=== PATIENT | male | born 1960 | race Caucasian/White ===

== ENCOUNTER 2021-06-27 19:30 | Emergency (ER) | payer MEDICARE, OTHER ==
[2021-06-27] MEDS ORDERED: Sodium Chloride 0.9% 10 ML Syringe FLUSH PRN (19:34)
--- NOTE | 2021-06-27 19:43 | EDM.PDOC ---
ED HPI GENERAL MEDICAL PROBLEM - General Chief Complaint: Chest Pain Stated Complaint: CHEST PAIN Time Seen by Provider: 06/27/21 19:34 Source of Information: Reports: Patient History Limitations: Reports: No Limitations - History of Present Illness INITIAL COMMENTS - FREE TEXT/NARRATIVE: Francisco is a 60-year-old male presenting to the ED with acute onset of chest pressure started about 90 minutes prior to arrival. Patient recently underwent an angiogram with stent placement at [facility] approximately 3 days ago. Patient has a history for significant coronary artery disease status post coronary bypass graft 4 years ago. Septums include chest pressure, shortness of breath, mild nausea and some diaphoresis. Patient was sitting watching a movie when he had acute onset of the chest pressure, nausea, and he tried to lay down to see if it will go away. Patient is extremely sensitive the nitrates and avoids them. He is on metoprolol XL 50 mg daily, aspirin 81 mg daily, Plavix 75 mg twice daily, Ranexa and lovastatin. There is a very strong family history on his mother side of coronary artery disease with multiple family members dying in their 50s from complications related to coronary disease. The patient previously had a history for hypertension but this is under control on medication. He also had a previous significant history for hyperlipidemia but this too is under control with medication. He is not diabetic. He has previously smoked but has been a non-smoker for many years. He is overweight. He states that this pressure feels a little different than when he was seen earlier this week prior to undergoing the stent placement. He states it felt like he was in A. fib because he had a fluttering that was irregular. This made him quite nauseous. Middle Chest Pain Score (Numeric/FACES): 8 - Related Data Allergies Allergy/AdvReac Type Severity Reaction Status Date / Time isosorbide Allergy Headache Verified 06/27/21 19:35 Nitrate Analogues Allergy Headache Verified 06/27/21 19:35 nitroglycerin Allergy Headache Verified 06/27/21 19:35 Home Meds: Home Meds Aspirin [Halfprin] 81 mg PO DAILY 06/27/21 [History] Clopidogrel [Plavix] 75 mg PO DAILY 06/27/21 [History] Fluticasone Propionate [Flonase] 16 gm NS ASDIRECTED 06/27/21 [History] Furosemide [Lasix] 40 mg PO DAILY 06/27/21 [History] Metoprolol Succinate [Toprol Xl] 1 tab PO DAILY 06/27/21 [History] Pantoprazole [ProTONIX] 40 mg PO DAILY 06/27/21 [History] Potassium Chloride [Klor-Con M20] 20 meq PO DAILY 06/27/21 [History] Ranolazine [Ranexa] 500 mg PO DAILY 06/27/21 [History] Rosuvastatin [Crestor] 10 mg PO DAILY 06/27/21 [History] traZODone 100 mg PO BEDTIME 06/27/21 [History] ED ROS GENERAL - Review of Systems Review Of Systems: See Below Constitutional: Reports: Diaphoresis HEENT: Reports: No Symptoms Respiratory: Reports: Shortness of Breath Cardiovascular: Reports: Chest Pain, Lightheadedness, Palpitations Endocrine: Reports: No Symptoms GI/Abdominal: Reports: Nausea : Reports: No Symptoms Musculoskeletal: Reports: No Symptoms Skin: Reports: No Symptoms Neurological: Reports: No Symptoms Psychiatric: Reports: No Symptoms Hematologic/Lymphatic: Reports: No Symptoms Immunologic: Reports: No Symptoms ED EXAM, GENERAL - Physical Exam Exam: See Below Exam Limited By: No Limitations General Appearance: Alert, Anxious, Mild Distress Eye Exam: Bilateral Eye: EOMI, PERRL Throat/Mouth: Normal Inspection, Normal Lips, Normal Oropharynx, Normal Voice, No Airway Compromise Head: Atraumatic, Normocephalic Neck: Normal Inspection, Supple, Non-Tender, Full Range of Motion. No: Carotid Bruit Respiratory/Chest: No Respiratory Distress, Lungs Clear, Normal Breath Sounds. No: Rales, Rhonchi, Wheezing Cardiovascular: Normal Peripheral Pulses, Regular Rate, Rhythm, No Murmur, Tachycardia, Extra Beats (Frequent PVCs) Peripheral Pulses: 2+: Radial (L), Radial (R), Posterior Tibial (L), Posterior Tibial (R) GI/Abdominal: Normal Bowel Sounds, Soft, Non-Tender Extremities: Normal Inspection, Normal Range of Motion, No Pedal Edema, Normal Capillary Refill Neurological: Alert, Oriented, Normal Cognition, No Motor/Sensory Deficits Psychiatric: Normal Affect, Normal Mood, Anxious Skin Exam: Warm, Dry, Intact, Normal Color. No: Diaphoretic, Pallor #1 Interpretation EKG Date: 06/27/21 Time: 19:29 Rhythm: NSR (Sinus tachycardia with frequent PVCs) Rate (Beats/Min): 105 Confluence: LAD-Left Confluence Deviation P-Wave: Present (Borderline prolonged ME interval with the ME interval being 200 ms) QRS: Normal (Poor R wave progression in the precordial leads. Q waves in leads II, 3, aVF consistent with previous inferior MN) ST-T: Normal (Nonspecific ST-T changes) QT: Normal Comparison: NA - No Prior EKG Course - Vital Signs Last Recorded V/S: Last Vital Signs Temp 36.8 C 06/27/21 19:39 Pulse 92 06/27/21 21:53 Resp 19 06/27/21 20:34 BP 123/52 L 06/27/21 21:53 Pulse Ox 97 06/27/21 20:34 - Orders/Labs/Meds Orders: Active Orders 24 hr Category Date Time Status Chest 1V Frontal [CR] Stat Exams 06/27/21 19:34 Taken Aspirin Med 06/27/21 23:56 Once 243 mg PO ONETIME ONE HYDROmorphone [Dilaudid] Med 06/27/21 23:56 Once 0.5 mg IVPUSH ONETIME ONE Heparin Sodium Med 06/27/21 23:56 Once 4,000 units IVPUSH .BOLUS ONE Heparin Sodium/D5W [Heparin 25,000 Units in D5W 500 ML] Med 06/27/21 23:45 Ordered 25,000 units in 500 ml IV TITRATE Nitroglycerin 25 MG in D5W @ 10 MCG/MIN(250ml) Premix Med 06/27/21 23:45 Or dered Nitroglycerin/D5W [Nitroglycerin 25 MG/D5W 250 ML] 25 mg in 250 ml IV TITRATE Sodium Chloride 0.9% [Saline Flush] Med 06/27/21 19:34 Active 10 ml FLUSH ASDIRECTED PRN Saline Lock Insert [OM.PC] Routine Oth 06/27/21 19:34 Ordered EKG 12 Lead [EK] Routine Ther 06/27/21 19:34 Ordered Medication Orders Sodium Chloride (Sodium Chloride 0.9% 10 Ml Syringe) 10 ml FLUSH ASDIRECTED PRN PRN Reason: Keep Vein Open Last Admin: 06/27/21 19:50 Dose: 10 ml Documented by: GABRIELA Labs: Laboratory Tests 06/27/21 06/27/21 06/27/21 Range/Units 19:40 19:40 19:40 WBC 9.3 (4.5-11.0) K/uL RBC 4.78 (4.30-5.90) M/uL Hgb 14.8 (12.0-15.0) g/dL Hct 42.4 (40.0-54.0) % MCV 89 (80-98) fL MCH 31 (27-31) pg MCHC 35 (32-36) % Plt Count 195 (150-400) K/uL Neut % (Auto) 63.7 (36-66) % Lymph % (Auto) 25.3 (24-44) % [place] % (Auto) 7.0 H (2-6) % Eos % (Auto) 3.2 (2-4) % Baso % (Auto) 0.8 (0-1) % PT 11.0 (9.5-12.0) sec INR 1.01 (0.80-1.20) APTT 24.0 L (27.0-36.0) sec Sodium 141 (140-148) mmol/L Potassium 3.6 (3.6-5.2) mmol/L Chloride 103 (100-108) mmol/L Carbon Dioxide 25 (21-32) mmol/L Anion Gap 13.2 (5.0-14.0) mmol/L BUN 21 H (7-18) mg/dL Creatinine 1.2 (0.8-1.3) mg/dL Est Cr Clr Drug Dosing 80.20 mL/min Estimated GFR (MDRD) > 60 (>60) Glucose 114 H (74-106) mg/dL Calcium 8.9 (8.5-10.1) mg/dL Total Bilirubin 0.8 (0.2-1.0) mg/dL AST 25 (15-37) U/L ALT 29 (12-78) U/L Alkaline Phosphatase 110 (46-116) U/L Troponin I 0.018 (0.000-0.056) ng/mL Total Protein 6.8 (6.4-8.2) g/dL Albumin 3.8 (3.4-5.0) g/dL Globulin 3.0 (2.3-3.5) g/dL Albumin/Globulin Ratio 1.3 (1.2-2.2) 06/27/21 Range/Units 22:51 WBC (4.5-11.0) K/uL RBC (4.30-5.90) M/uL Hgb (12.0-15.0) g/dL Hct (40.0-54.0) % MCV (80-98) fL MCH (27-31) pg MCHC (32-36) % Plt Count (150-400) K/uL Neut % (Auto) (36-66) % Lymph % (Auto) (24-44) % [place] % (Auto) (2-6) % Eos % (Auto) (2-4) % Baso % (Auto) (0-1) % PT (9.5-12.0) sec INR (0.80-1.20) APTT (27.0-36.0) sec Sodium (140-148) mmol/L Potassium (3.6-5.2) mmol/L Chloride (100-108) mmol/L Carbon Dioxide (21-32) mmol/L Anion Gap (5.0-14.0) mmol/L BUN (7-18) mg/dL Creatinine (0.8-1.3) mg/dL Est Cr Clr Drug Dosing mL/min Estimated GFR (MDRD) (>60) Glucose (74-106) mg/dL Calcium (8.5-10.1) mg/dL Total Bilirubin (0.2-1.0) mg/dL AST (15-37) U/L ALT (12-78) U/L Alkaline Phosphatase (46-116) U/L Troponin I 0.031 (0.000-0.056) ng/mL Total Protein (6.4-8.2) g/dL Albumin (3.4-5.0) g/dL Globulin (2.3-3.5) g/dL Albumin/Globulin Ratio (1.2-2.2) Meds: Medications Generic Name Dose Route Start Last Admin Trade Name Freq PRN Reason Stop Dose Admin Sodium Chloride 10 ml 06/27/21 19:34 06/27/21 19:50 Sodium Chloride 0.9% 10 Ml Syringe FLUSH 10 ml ASDIRECTED PRN Administration Keep Vein Open Discontinued Medications Generic Name Dose Route Start Last Admin Trade Name Freq PRN Reason Stop Dose Admin Diltiazem HCl 60 mg 06/27/21 20:43 06/27/21 20:50 Diltiazem Ir 30 Mg Tab PO 06/27/21 20:44 60 mg ONETIME ONE Administration - Re-Assessments/Exams Free Text/Narrative Re-Assessment/Exam: 06/27/21 20:45 Francisco presents with 90 minutes onset of chest pressure after having a stent placed at [facility] on Thursday (4 days ago). Patient has a significant history for coronary disease and states that this pain feels similar just not as severe as it did on Thursday. His labs are reviewed showing normal CBC and comprehensive metabolic profile. His PTT is 24, his PT/INR is 11.0/1.01. His initial troponin is 0.018. Patient is extremely sensitive to nitrates which cause severe headache. Therefore, he is refusing nitrates but I did talk with the doctor who performed the angioplasty, Dr. Mayfield, medical record clerk at [facility] who recommended giving the patient diltiazem 60 mg by mouth which will cause some vasodilation of the coronary arteries. I do plan on keeping the patient for a delta troponin and if ever elevated I will likely have to transfer him for admission elsewhere for unstable angina. Dr. Mayfield stated that wherever he is admitted they should contact him at [facility] in the morning to discuss the next steps whether it requires taking him back to the [facility] for reimaging and revascularization. Unfortunately, [facility] is at capacity and does not have the ability to take the patient tonight. 06/27/21 23:59 Repeat troponin after 3 hours is gone from 0.018 to 0.031. The patient has had improvement of his chest pain from an 8 out of 10 down to 5 out of 10 after receiving the diltiazem 60 mg p.o. At this time we will initiate heparin 4000 unit bolus with an infusion at 12 units/kg/h as this is likely a non-STEMI. Patient will also get started on nitroglycerin IV. I will use Dilaudid to treat his headache. I discussed the case with Dr. Colmenares from [facility] who accepts the patient in transfer for admission to their [facility]. Concern is that the patient either has acute restenosis at the stent or may have other vessels as the culprit. When I discussed the case with Dr. Mayfield, he could not recall the anatomy or where the stent was placed. Departure - Departure Time of Disposition: 23:45 Disposition: DC/Tfer to Acute Hospital 02 Reason for Transfer *Q: Primary PCI Indicated (Non-STEMI after recent PTCA 4 days prior) Clinical Impression: Non-STEMI (non-ST elevated myocardial infarction) Referrals: Zakia Marcus MD [Primary Care Provider] - Forms: ED Department Discharge Sepsis Event Note (ED) - Focused Exam Vital Signs: Vital Signs Temp Pulse Resp BP Pulse Ox 06/27/21 21:53 92 123/52 L 06/27/21 20:34 89 19 128/64 97 06/27/21 20:03 94 18 127/62 95 06/27/21 19:39 36.8 C 98 22 H 158/102 H 97 - Problem List & Annotations (1) Non-STEMI (non-ST elevated myocardial infarction) SNOMED Code(s): 86589177 Code(s): I21.4 - NON-ST ELEVATION (NSTEMI) MYOCARDIAL INFARCTION Status: Acute Priority: High Current Visit: Yes - Problem List Review Problem List Initiated/Reviewed/Updated: Yes - My Orders Last 24 Hours: My Active Orders 06/27/21 19:34 Chest 1V Frontal [CR] Stat Sodium Chloride 0.9% [Saline Flush] 10 ml FLUSH ASDIRECTED PRN Saline Lock Insert [OM.PC] Routine EKG 12 Lead [EK] Routine 06/27/21 23:45 Heparin Sodium/D5W [Heparin 25,000 Units in D5W 500 ML] 25,000 units in 500 ml IV TITRATE Nitroglycerin 25 MG in D5W @ 10 MCG/MIN(250ml) Premix Nitroglycerin/D5W [Nitroglycerin 25 MG/D5W 250 ML] 25 mg in 250 ml IV TITRATE 06/27/21 23:56 Aspirin 243 mg PO ONETIME ONE HYDROmorphone [Dilaudid] 0.5 mg IVPUSH ONETIME ONE Heparin Sodium 4,000 units IVPUSH .BOLUS ONE - Assessment/Plan Last 24 Hours: My Active Orders 06/27/21 19:34 Chest 1V Frontal [CR] Stat Sodium Chloride 0.9% [Saline Flush] 10 ml FLUSH ASDIRECTED PRN Saline Lock Insert [OM.PC] Routine EKG 12 Lead [EK] Routine 06/27/21 23:45 Heparin Sodium/D5W [Heparin 25,000 Units in D5W 500 ML] 25,000 units in 500 ml IV TITRATE Nitroglycerin 25 MG in D5W @ 10 MCG/MIN(250ml) Premix Nitroglycerin/D5W [Nitroglycerin 25 MG/D5W 250 ML] 25 mg in 250 ml IV TITRATE 06/27/21 23:56 Aspirin 243 mg PO ONETIME ONE HYDROmorphone [Dilaudid] 0.5 mg IVPUSH ONETIME ONE Heparin Sodium 4,000 units IVPUSH .BOLUS ONE
[2021-06-27] MEDS ORDERED: Diltiazem IR 30 MG Tab PO ONE (20:43)
[2021-06-27] MEDS ORDERED: Nitroglycerin/D5W 25 MG/250 ML BOTTLE IV SCH (23:45)
[2021-06-27] MEDS ORDERED: Heparin Sodium/D5W 25,000 UNITS/500 ML BAG IV SCH (23:45)
[2021-06-27] MEDS ORDERED: Heparin Sodium 5,000 Units/ML Vial IVPUSH ONE (23:56)
[2021-06-27] MEDS ORDERED: Aspirin 81 MG Tab.Chew PO ONE (23:56)
[2021-06-27] MEDS ORDERED: HYDROmorphone 0.5 MG/0.5 ML Syringe IVPUSH ONE (23:56)
[2021-06-28] MEDS ORDERED: HYDROmorphone 1 MG/ML Syringe IVPUSH ONE (00:50)
--- NOTE | 2021-06-28 08:50 | CR ---
CHEST: Portable 06/27/2021 at 7:59 PM CLINICAL HISTORY:Chest pain COMPARISON:None FINDINGS: Patient has had previous sternotomy. The heart size, pulmonary vascularity and hilar structures are normal. No infiltrate effusion or pneumothorax is seen. There is a small left lower lobe nodule which appears to be a granuloma. Prior images would be helpful IMPRESSION: No acute cardiopulmonary process. Previous sternotomy
== END 2021-06-28 01:15 ==
LOC: JP.ED 19:30
DX: I21.4 Non-ST elevation (NSTEMI) myocardial infarction (principal); Z88.8 Allergy status to other drugs, medicaments and biological substances; Z79.82 Long term (current) use of aspirin; Z79.02 Long term (current) use of antithrombotics/antiplatelets; Z79.899 Other long term (current) drug therapy
CPT/HCPCS: 36415; 71045; 80053; 84484; 85025; 85610; 85730; 93005; 96365; 96368; 96375; 96376; 99285; A9270; J1170; J1644; J3490

== ENCOUNTER 2021-08-13 07:30 | Emergency (ER) | payer OTHER ==
--- NOTE | 2021-08-13 07:50 | EDM.PDOC ---
ED HPI GENERAL MEDICAL PROBLEM - General Chief Complaint: Lower Extremity Injury/Pain Stated Complaint: LT KNEE POPPED Time Seen by Provider: 08/13/21 07:44 Source of Information: Reports: Patient, Family, RN Notes Reviewed History Limitations: Reports: No Limitations - History of Present Illness INITIAL COMMENTS - FREE TEXT/NARRATIVE: 60-year-old gentleman presents to the emergency department today pain in his left knee, he injured himself while going up steps he heard a large pop, now is unable to bear weight any movement rates the pain 10 out of 10 at rest pain is 5 out of 10. he was able to put himself in a knee immobilizer and use crutches presents emergency Left Knee Pain Score (Numeric/FACES): 5 - Related Data Allergies Allergy/AdvReac Type Severity Reaction Status Date / Time duloxetine Allergy Other Verified 08/13/21 07:34 isosorbide Allergy Headache Verified 08/13/21 07:34 mirtazapine Allergy Other Verified 08/13/21 07:34 Nitrate Analogues Allergy Headache Verified 08/13/21 07:34 nitroglycerin Allergy Headache Verified 08/13/21 07:34 Home Meds: Home Meds Aspirin [Halfprin] 81 mg PO DAILY 06/27/21 [History] Clopidogrel [Plavix] 75 mg PO DAILY 06/27/21 [History] Fluticasone Propionate [Flonase] 16 gm NS ASDIRECTED 06/27/21 [History] Furosemide [Lasix] 20 mg PO DAILY 06/27/21 [History] Metoprolol Succinate [Toprol Xl] 50 mg PO DAILY 06/27/21 [History] Pantoprazole [ProTONIX] 40 mg PO DAILY 06/27/21 [History] Potassium Chloride [Klor-Con M20] 20 meq PO DAILY 06/27/21 [History] Ranolazine [Ranexa] 500 mg PO DAILY 06/27/21 [History] Rosuvastatin [Crestor] 10 mg PO DAILY 06/27/21 [History] traZODone 100 mg PO BEDTIME 06/27/21 [History] Nitroglycerin 0.4 mg SL ASDIRECTED PRN 08/13/21 [History] Past Medical History HEENT History: Reports: Impaired Vision Cardiovascular History: Reports: Afib, Arrhythmia, CAD, High Cholesterol, Hypertension, PA, Stents Gastrointestinal History: Reports: GERD Genitourinary History: Reports: Prostate Disorder, Other (See Below) Musculoskeletal History: Reports: Back Pain, Chronic, Fracture, Neck Pain, Chronic Neurological History: Reports: Concussion, Head Trauma Psychiatric History: Reports: Anxiety, PTSD Endocrine/Metabolic History: Reports: Obesity/BMI 30+ - Infectious Disease History Infectious Disease History: Reports: Chicken Pox, Measles, Mumps - Past Surgical History Cardiovascular Surgical History: Reports: Coronary Artery Bypass, Coronary Artery Stent GI Surgical History: Reports: Other (See Below) Other GI Surgeries/Procedures: ventral hernia Social & Family History - Tobacco Use Tobacco Use Status *Q: Never Tobacco User - Caffeine Use Caffeine Use: Reports: Coffee - Recreational Drug Use Recreational Drug Use: No Review of Systems - Review of Systems Review Of Systems: See Below Musculoskeletal: Reports: Joint Pain Neurological: Reports: Tingling (In his toes) ED EXAM, GENERAL - Physical Exam Exam: See Below Free Text/Narrative:: Examination left knee I do appreciate some edema inferior aspect of the patella the patella appears to be in place. He will not tolerate any type of exam as he has excruciating pain there is no specific joint line tenderness medially or laterally pedal pulses +2 he has full range of motion of digits does complain of change in sensation at his toes Exam Limited By: No Limitations General Appearance: Alert, Mild Distress Course - Vital Signs Last Recorded V/S: Last Vital Signs Temp 97.4 F 08/13/21 07:38 Pulse 72 08/13/21 07:38 Resp 20 08/13/21 07:38 BP 146/91 H 08/13/21 07:38 Pulse Ox 100 08/13/21 07:38 - Orders/Labs/Meds Orders: Active Orders 24 hr Category Date Time Status HYDROmorphone [Dilaudid] Med 08/13/21 08:45 Once 1 mg IM ONETIME ONE Meds: Medications Discontinued Medications Generic Name Dose Route Start Last Admin Trade Name Tioq PRN Reason Stop Dose Admin Hydromorphone HCl 1 mg 08/13/21 07:47 08/13/21 07:54 Hydromorphone 1 Mg/Ml Syringe IM 08/13/21 07:48 1 mg ONETIME ONE Administration Departure - Departure Time of Disposition: 08:46 Disposition: Home, Self-Care 01 Condition: Fair Clinical Impression: Left knee pain Qualifiers: Chronicity: acute Qualified Code(s): M25.562 - Pain in left knee - Discharge Information Instructions: Acute Knee Pain, Adult Referrals: Zakia Marcus MD [Primary Care Provider] - Forms: ED Department Discharge Additional Instructions: Please report to the Ortho clinic for further evaluation Sepsis Event Note (ED) - Evaluation Sepsis Screening Result: No Definite Risk - Focused Exam Vital Signs: Vital Signs Temp Pulse Resp BP Pulse Ox 08/13/21 07:38 97.4 F 72 20 146/91 H 100 08/13/21 07:32 97.4 F 72 20 146/91 H 100 - My Orders Last 24 Hours: My Active Orders 08/13/21 08:45 HYDROmorphone [Dilaudid] 1 mg IM ONETIME ONE - Assessment/Plan Last 24 Hours: My Active Orders 08/13/21 08:45 HYDROmorphone [Dilaudid] 1 mg IM ONETIME ONE Plan: Assessment Acuity = acute Site and laterality = left knee pain Etiology = suspicious for ligament injury Manifestations = none Location of injury = Home Lab values = x-ray reveals no fracture Plan Called discussed case with orthopedics today he was wheeled to the clinic from the emergency department discharge for further evaluation. This note was dictated using [employer] voice recognition software please call with any questions on syntax or grammar.
[2021-08-13] MEDS: HYDROmorphone 1 MG/ML Syringe IM ONE ×2 (07:54→08:53)
--- NOTE | 2021-08-13 08:32 | CRLCR ---
For Patients: As a result of the Cures Act, medical imaging exams and procedure reports are released immediately into your electronic medical record. You may view this report before your referring provider. If you have questions, please contact your health care provider. INDICATION: Pain left knee. COMPARISON: None. TECHNIQUE: Two-view study left knee. FINDINGS: No evidence of acute fracture or dislocation. No evidence of suprapatellar synovial effusion. IMPRESSION: Negative radiographic examination of the left knee. Dictated by Willian Ellison MD @ 08/13/2021 8:31:44 AM (Electronically Signed)
== END 2021-08-13 09:02 | disposition home or self-care (01) ==
LOC: JP.ED 07:30
DX: M25.562 Pain in left knee (principal); I25.10 Atherosclerotic heart disease of native coronary artery without angina pectoris; I10 Essential (primary) hypertension; I25.2 Old myocardial infarction; E66.9 Obesity, unspecified; Z68.41 Body mass index [BMI] 40.0-44.9, adult; Z88.8 Allergy status to other drugs, medicaments and biological substances; Z79.82 Long term (current) use of aspirin; Z79.899 Other long term (current) drug therapy
CPT/HCPCS: 73560; 96372; 99283; J1170

== ENCOUNTER 2023-12-16 19:05 | Emergency (ER) | payer OTHER ==
[2023-12-16 19:36] LABS: BASOPHILS ABSOLUTE AUTO 0.06 K/uL (0.00-0.10); BASOPHILS PERCENT AUTO 0.8 % (0.1-1.3); EOSINOPHILS ABSOLUTE AUTO 0.21 K/uL (0.00-0.40); EOSINOPHILS PERCENT AUTO 2.8 % (0.0-5.4); HEMATOCRIT 43.2 % (38.4-49.7); HEMOGLOBIN 15.6 g/dL (12.9-16.9); IMMATURE GRAN PERCENT AUTO 0.1 % (0.0-0.7); LYMPHOCYTES ABSOLUTE AUTO 2.46 K/uL (0.8-3.3); LYMPHOCYTES PERCENT AUTO 33.1 % (11.4-47.7); MEAN CORPUSCULAR HGB CONC 36.1 g/dL (31.6-35.5); MEAN CORPUSCULAR VOLUME 88.7 fL (81.4-99.0); MONOCYTES ABSOLUTE AUTO 0.56 K/uL (0.20-0.90); MONOCYTES PERCENT AUTO 7.5 % (3.3-12.6); NEUTROPHILS ABSOLUTE AUTO 4.14 K/uL (1.0-7.6); NEUTROPHILS PERCENT AUTO 55.7 % (40.0-78.1); PLATELET COUNT,PLT 213 K/uL (130-375); RED BLOOD CELL COUNT 4.87 M/uL (4.14-5.76); WHITE BLOOD CELL COUNT,WBC 7.4 K/uL (3.2-11.0)
[2023-12-16 19:37] LABS: IMMATURE GRAN ABSOLUTE AUTO 0.01 K/uL (0.00-0.23)
[2023-12-16 20:01] LABS: CALCIUM 8.7 mg/dL (8.5-10.1); CREATININE 1.1 mg/dL (0.8-1.3); EST CRCL DRUG DOSING (CG) 86.58 mL/min; POTASSIUM,K 3.3 mmol/L (3.6-5.2); TROPONIN I HIGH SENSITIVITY 8.6 pg/mL (<=60.3)
[2023-12-16 20:03] LABS: ANION GAP 14.3 mmol/L (5.0-14.0)
[2023-12-16 20:05] LABS: CORONAVIRUS COVID-19 NAA NEGATIVE (NEGATIVE); INFLUENZA A NAA NEGATIVE (NEGATIVE); INFLUENZA B NAA NEGATIVE (NEGATIVE); RESPIRATORY SYNCYTIAL VIR NAA NEGATIVE (NEGATIVE)
[2023-12-16] MEDS: Nitroglycerin 0.4 MG Tab.SL SL ONE (20:45)
== END 2023-12-16 21:46 | disposition home or self-care (01) ==
LOC: JP.ED 19:05
DX: R07.89 Other chest pain (principal); I10 Essential (primary) hypertension; E78.00 Pure hypercholesterolemia, unspecified; I25.10 Atherosclerotic heart disease of native coronary artery without angina pectoris; I25.2 Old myocardial infarction; Z79.82 Long term (current) use of aspirin; Z88.8 Allergy status to other drugs, medicaments and biological substances; Z95.5 Presence of coronary angioplasty implant and graft; K21.9 Gastro-esophageal reflux disease without esophagitis; Z79.899 Other long term (current) drug therapy
CPT/HCPCS: 0241U; 36415; 71045; 71045-26; 80048; 83735; 84484; 85025; 85379; 93005; 93010; 99284; 99285

== ENCOUNTER 2024-03-16 11:00 | Emergency (ER) | payer OTHER ==
[2024-03-16 12:29] LABS: BASOPHILS ABSOLUTE AUTO 0.04 K/uL (0.00-0.10); BASOPHILS PERCENT AUTO 0.5 % (0.1-1.3); EOSINOPHILS ABSOLUTE AUTO 0.16 K/uL (0.00-0.40); EOSINOPHILS PERCENT AUTO 2.1 % (0.0-5.4); HEMATOCRIT 37.3 % (38.4-49.7); HEMOGLOBIN 13.1 g/dL (12.9-16.9); IMMATURE GRAN PERCENT AUTO 0.3 % (0.0-0.7); LYMPHOCYTES ABSOLUTE AUTO 2.15 K/uL (0.8-3.3); LYMPHOCYTES PERCENT AUTO 28.1 % (11.4-47.7); MEAN CORPUSCULAR HEMOGLOBIN 31.4 pg (31.6-35.5); MEAN CORPUSCULAR HGB CONC 35.1 g/dL (31.6-35.5); MEAN CORPUSCULAR VOLUME 89.4 fL (81.4-99.0); MONOCYTES ABSOLUTE AUTO 0.67 K/uL (0.20-0.90); MONOCYTES PERCENT AUTO 8.8 % (3.3-12.6); NEUTROPHILS PERCENT AUTO 60.2 % (40.0-78.1); PLATELET COUNT,PLT 161 K/uL (130-375); RED BLOOD CELL COUNT 4.17 M/uL (4.14-5.76); WHITE BLOOD CELL COUNT,WBC 7.6 K/uL (3.2-11.0)
[2024-03-16 12:40] LABS: IMMATURE GRAN ABSOLUTE AUTO 0.02 K/uL (0.00-0.23)
[2024-03-16 12:49] LABS: SEDIMENTATION RATE MANUAL 13 mm/hr (0-20)
[2024-03-16 12:50] LABS: A/G RATIO 1.2 (1.2-2.2); ALANINE AMINOTRANSFERASE,ALT 21 U/L (12-78); ALBUMIN 3.7 g/dL (3.4-5.0); ALKALINE PHOSPHATASE 96 U/L (46-116); ASPARTATE AMNIOTRANSFERASE,AST 32 U/L (15-37); BILIRUBIN TOTAL 0.8 mg/dL (0.2-1.0); BLOOD UREA NITROGEN,BUN 16 mg/dL (7-18); CALCIUM 8.9 mg/dL (8.5-10.1); CARBON DIOXIDE,CO2 28 mmol/L (21-32); CHLORIDE,CL 101 mmol/L (100-108); CREATININE 0.9 mg/dL (0.8-1.3); EST CRCL DRUG DOSING (CG) 105.82 mL/min; ESTIMATED GFR 97 mL/min (>60); GLUCOSE RANDOM 106 mg/dL (74-106); POTASSIUM,K 3.8 mmol/L (3.6-5.2); PROTEIN TOTAL,TP 6.8 g/dL (6.4-8.2); SODIUM,NA 136 mmol/L (140-148)
[2024-03-16 12:51] LABS: ANION GAP 10.8 mmol/L (5.0-14.0)
[2024-03-16] MEDS: Sodium Chloride 0.9% 1,000 ML IV ONE (12:54)
[2024-03-16] MEDS: HYDROmorphone 0.5 MG/0.5 ML Syringe IVPUSH ONE (12:55)
[2024-03-16] MEDS: HYDROmorphone 0.5 MG/0.5 ML Syringe ONE (13:17)
[2024-03-16] MEDS: HYDROmorphone 1 MG/ML Syringe IVPUSH ONE ×2 (13:36→15:02)
== END 2024-03-16 15:16 | disposition home or self-care (01) ==
LOC: JP.ED 11:00
DX: G89.18 Other acute postprocedural pain (principal); M25.561 Pain in right knee; I25.10 Atherosclerotic heart disease of native coronary artery without angina pectoris; E78.00 Pure hypercholesterolemia, unspecified; I10 Essential (primary) hypertension; I25.2 Old myocardial infarction; K21.9 Gastro-esophageal reflux disease without esophagitis; Z95.5 Presence of coronary angioplasty implant and graft; Z95.1 Presence of aortocoronary bypass graft; Z79.899 Other long term (current) drug therapy
CPT/HCPCS: 36415; 73562; 80053; 83605; 84145; 85025; 85651; 96374; 96376; 99283; J1170; J7030

== ENCOUNTER 2024-09-21 17:05 | Emergency (ER) | payer OTHER ==
[2024-09-21 17:25] LABS: BASOPHILS ABSOLUTE AUTO 0.05 K/uL (0.00-0.10); BASOPHILS PERCENT AUTO 0.8 % (0.1-1.3); EOSINOPHILS ABSOLUTE AUTO 0.24 K/uL (0.00-0.40); EOSINOPHILS PERCENT AUTO 3.9 % (0.0-5.4); HEMATOCRIT 42.4 % (38.4-49.7); HEMOGLOBIN 14.8 g/dL (12.9-16.9); IMMATURE GRAN PERCENT AUTO 0.3 % (0.0-0.7); LYMPHOCYTES ABSOLUTE AUTO 2.09 K/uL (0.8-3.3); MEAN CORPUSCULAR HEMOGLOBIN 31.1 pg (31.6-35.5); MEAN CORPUSCULAR HGB CONC 34.9 g/dL (31.6-35.5); MEAN CORPUSCULAR VOLUME 89.1 fL (81.4-99.0); MONOCYTES PERCENT AUTO 8.1 % (3.3-12.6); NEUTROPHILS ABSOLUTE AUTO 3.24 K/uL (1.0-7.6); NEUTROPHILS PERCENT AUTO 52.9 % (40.0-78.1); PLATELET COUNT,PLT 169 K/uL (130-375); RED BLOOD CELL COUNT 4.76 M/uL (4.14-5.76); WHITE BLOOD CELL COUNT,WBC 6.1 K/uL (3.2-11.0)
[2024-09-21 17:26] LABS: IMMATURE GRAN ABSOLUTE AUTO 0.02 K/uL (0.00-0.23)
[2024-09-21 17:41] LABS: INR 1.2; PROTHROMBIN TIME 12.1 sec (9.2-10.6)
[2024-09-21 17:52] LABS: A/G RATIO 1.3 (1.2-2.2); ALANINE AMINOTRANSFERASE,ALT 24 U/L (12-78); ALBUMIN 4.2 g/dL (3.4-5.0); ALKALINE PHOSPHATASE 111 U/L (46-116); ANION GAP 9.9 mmol/L (5.0-14.0); ASPARTATE AMNIOTRANSFERASE,AST 20 U/L (15-37); BILIRUBIN TOTAL 0.8 mg/dL (0.2-1.0); BLOOD UREA NITROGEN,BUN 14 mg/dL (7-18); CALCIUM 9.5 mg/dL (8.5-10.1); CARBON DIOXIDE,CO2 28 mmol/L (21-32); CHLORIDE,CL 103 mmol/L (100-108); EST CRCL DRUG DOSING (CG) 95.24 mL/min; ESTIMATED GFR 86 mL/min (>60); GLUCOSE RANDOM 88 mg/dL (74-106); PRO B-TYPE NATRIUR PEPT,BNPPRO 155 pg/mL (5-125); PROTEIN TOTAL,TP 7.5 g/dL (6.4-8.2); SODIUM,NA 141 mmol/L (140-148)
[2024-09-21 17:55] LABS: TSH ULTRASENSITIVE 1.193 uIU/mL (0.358-3.740)
[2024-09-21 20:45] LABS: APPEARANCE,URINE CLEAR (CLEAR); BILIRUBIN,URINE NEGATIVE (NEGATIVE); COLOR,URINE YELLOW (YELLOW); GLUCOSE,URINE NEGATIVE (NEGATIVE); KETONES,URINE NEGATIVE (NEGATIVE); LEUKOCYTE ESTERASE,URINE NEGATIVE (NEGATIVE); NITRITE,URINE NEGATIVE (NEGATIVE); OCCULT BLOOD,URINE NEGATIVE (NEGATIVE); PROTEIN,URINE NEGATIVE (NEGATIVE)
[2024-09-21 20:50] LABS: AMPHETAMINES SCREEN, URINE NEGATIVE (NEGATIVE); BARBITURATE SCREEN,URINE NEGATIVE (NEGATIVE); BENZODIAZEPINES SCREEN,URINE NEGATIVE (NEGATIVE); METHADONE SCREEN, URINE NEGATIVE (NEGATIVE); METHAMPHETAMINES SCREEN, URINE NEGATIVE (NEGATIVE); OXYCODONE SCREEN,URINE NEGATIVE (NEGATIVE); PROPOXYPHENE SCREEN,URINE NEGATIVE (NEGATIVE); THC SCREEN,URINE 50 NG/ML PRESUMPTIVE POSITIVE (NEGATIVE)
[2024-09-21 20:51] LABS: AMORPHOUS SEDIMENT,URINE NOT SEEN; BACTERIA,URINE NOT SEEN; EPITHELIAL CELLS,URINE RARE; MUCUS,URINE NOT SEEN; RBC,URINE 0-5 (0-5); WBC,URINE 0-5 (0-5)
== END 2024-09-21 20:54 | disposition critical access hospital (66) ==
LOC: JP.ED 17:05
DX: R00.0 Tachycardia, unspecified (principal); I48.91 Unspecified atrial fibrillation; I25.10 Atherosclerotic heart disease of native coronary artery without angina pectoris; E78.00 Pure hypercholesterolemia, unspecified; I10 Essential (primary) hypertension; E66.9 Obesity, unspecified; Z68.41 Body mass index [BMI] 40.0-44.9, adult; Z95.5 Presence of coronary angioplasty implant and graft; Z79.82 Long term (current) use of aspirin; Z79.899 Other long term (current) drug therapy; Z88.8 Allergy status to other drugs, medicaments and biological substances
CPT/HCPCS: 36415; 71045; 71045-26; 80053; 80305-QW; 81001; 83880; 84443; 84484; 85025; 85610; 93005; 93010; 99285